=== PATIENT | female | born 1950 | race Caucasian/White ===

== ENCOUNTER 2017-04-12 17:30 | Emergency (ER) | payer OTHER ==
[~2017-04-12] VITALS: Ht 165.1 cm; Wt 64.3 kg
[2017-04-12 17:33] VITALS: TEMP 36.3; Ht 165.1 cm; Wt 64.3 kg
[2017-04-12] MEDS ORDERED: HYDROCODONE/ACETAMOPHEN 5/325MG TAB PO STA ×2 (17:47→18:35)
[2017-04-12] MEDS ORDERED: ONDANSETRON 4MG OD TAB PO ONE (18:00)
[2017-04-12] MEDS ORDERED: LISI10TA PO (18:08)
[2017-04-12] MEDS ORDERED: CHOL2000 PO (18:08)
[2017-04-12] MEDS ORDERED: LEVO75TA5 PO (18:08)
[2017-04-12] MEDS ORDERED: CYAN100020 PO (18:08)
--- NOTE | 2017-04-12 18:36 | DIAGNOSTIC IMAGING REPORT ---
LEFT WRIST MIN 3 VIEWS ROUTINE CLINICAL HISTORY: Trauma. Left wrist pain. COMPARISON STUDY: None. FINDINGS: The bones are osteopenic. Nondisplaced fracture at the base of the ulnar styloid. Soft tissue swelling within the left wrist. The carpal bones appear intact. A comminuted and impacted fracture of the distal left radius with intra-articular extension. This demonstrates up to 6 mm of dorsal displacement. IMPRESSION: Distal radius and ulnar styloid fractures as described above. Electronically signed by: Jonathan Chung M.D. 04/12/2017 6:35 PM Dictated Date/Time: 04/12/2017 6:34 PM
[2017-04-12] MEDS ORDERED: XYLOCAINE 1%/SOD BICARB 20 ML VIAL INFIL ONE (18:45)
[2017-04-12] MEDS ORDERED: NORCO 5/325MG HOME PACK PO ONE (19:30)
[2017-04-12] MEDS ORDERED: HYDR-5688 PO (19:31)
[2017-04-12 20:04] VITALS: BP 146/91; PULSE 73; O2SAT 97
--- NOTE | 2017-04-12 20:27 | DIAGNOSTIC IMAGING REPORT ---
LEFT WRIST 2 VIEW CLINICAL HISTORY: s/p reduction. Left wrist fracture. COMPARISON STUDY: Left wrist 04/12/2017. FINDINGS: Overlying splint material obscures fine bony detail. The patient is status post reduction of the left distal radius and ulnar styloid fractures. There is improved anatomic alignment with no significant displacement at this time. No dislocation. Mild soft tissue swelling. IMPRESSION: Near anatomic alignment status post reduction of the left distal radius and ulnar styloid fractures. Electronically signed by: Jonathan Chung M.D. 04/12/2017 8:26 PM Dictated Date/Time: 04/12/2017 8:25 PM
--- NOTE | 2017-04-12 23:02 | ORTHOPEDIC CONSULTATION ---
DATE OF CONSULTATION: 04/12/2017 HISTORY OF PRESENT ILLNESS: She is a 66-year-old female who fell on an outstretched left arm and had deformity and pain in her wrist. She was in [place], as they used to live here and her family is here a nod she is visiting her daughter and grandchildren. PAST MEDICAL HISTORY: Positive for hypertension. MEDICATIONS: Vitamin D, vitamin B12, levothyroxine and lisinopril. She is an otherwise healthy individual. SOCIAL HISTORY: She lives with her and they are from [facility]. REVIEW OF SYSTEMS: Noncontributory. No other injuries. No active health issues. PHYSICAL EXAMINATION: Demonstrates on her left wrist, she has some deformity, consistent with a Colles' fracture. There is some dorsal displacement of the radius with respect to the shaft with some slight radial deviation. Tenderness of the radius and the ulna. NEUROLOGICAL: Exam is intact. SKIN: Is intact. RADIOGRAPHS: Demonstrate Colles; fracture with ulnar styloid fracture. There is some dorsal ulnar comminution with a displaced fragment dorsally. The angulation is about 30 degrees, apex volar. ASSESSMENT: Acute left Colles' fracture. PLAN: Closed reduction under hematoma block. Her wrist was sterilely prepped with Betadine and a 20-gauge needle was used to inject 10 mL of 1% lidocaine into the hematoma via dorsal approach. She had excellent pain relief. We did a closed reduction by reproducing some of the extension deformity, placed in longitudinal traction and palmar flexion and ulnar deviation. She was placed into anterior-posterior molded plaster splints and then a fiberglass sugar tong splint was placed about the elbow. Kody wraps were applied. The mold was held until the plaster hardened. Post-reduction x-rays are pending at this time. I discussed with her that she could either be treated conservatively with splinting followed by casting versus volar locking plate, depending are on the x-rays and follow up x-rays with her orthopedist at home. She is going to follow up with her orthopedic surgeon at home in [place].
--- NOTE | 2017-04-13 00:22 | EMERGENCY ROOM VISIT NOTE ---
History Report prepared by Nain: Zheng Downing Under the Supervision of: Dr. Jasper Anderson M.D. First contact with patient: 17:40 Chief Complaint: WRIST PAIN Stated Complaint: L WRIST INJURY History of Present Illness The patient is a 66 year old female with a history of a right wrist hairline fracture who presents to the Emergency Room with complaints of a sudden left wrist injury that occurred around 25 minutes ago. The [place]. She states that she was outside enjoying herself, when she lost her balance and fell backwards. The patient states that she caught her fall with her left wrist, and has resulting left wrist pain, which she rates as a 5 out of 10 in severity. She adds that she hit the back of her head on the fall, but her left wrist took the brunt of the fall. She notes that she has left arm pain, in addition to starting to have some tingling and numbness in her fingers on her left hand. She says that her pain currently is worse than when she fell and fractured her left wrist in the past. The patient says that she has hypertension, and takes 10 mg Lisinopril. Pt denies LOC, headache, visual changes, neck pain, chest pain, breathing difficulties, nausea, vomiting, abdominal pain, back pain, weakness, open wounds, active bleeding, or other complaints. Source of History: patient Onset: 25 minutes ago Position: wrist (left) Symptom Intensity: 5/10 pain Timing: other (sudden) Associated Symptoms: + numbness (and tingling in fingers on left hand) Note: Associated symptoms: Left arm pain. Review of Systems See HPI for pertinent positives and negatives. A total of ten systems were reviewed and were otherwise negative. Past Medical & Surgical Medical Problems: (1) HTN (hypertension) (2) Right wrist fracture Family History Cancer Diabetes mellitus Heart disease Hypertension Social History Smoking Status: Never Smoker Smokeless Tobacco Use: No Alcohol Use: occasionally Marital Status: Housing Status: lives with family Occupation Status: retired Current/Historical Medications Scheduled Cholecalciferol (Vitamin D3), 1 CAP PO DAILY Cyanocobalamin (Vitamin B12), 1 TAB PO DAILY Levothyroxine Sodium (Levothyroxine Sodium), 75 MCG PO DAILY Lisinopril (Prinivil), 10 MG PO DAILY Scheduled PRN Hydrocodone/Acetaminophen 5MG/325MG (Beulah 5MG/325MG), 1-2 TABS PO Q6H PRN for Pain Allergies Coded Allergies: No Known Allergies (Unverified , 04/12/17) Physical Exam Vital Signs Date Time Temp Pulse Resp B/P (MAP) Pulse Ox O2 Delivery O2 Flow Rate FiO2 04/12/17 20:04 73 20 146/91 97 04/12/17 17:33 36.3 86 20 137/72 98 Room Air Physical Exam GENERAL: Awake, alert, mildly uncomfortable appearing, no acute distress HEAD: Normocephalic, atraumatic. No flores sign. No raccoon eyes. EYES: Normal conjunctiva. PERRL. EARS: External ears normal. Right TM normal. Left TM normal. NOSE: Atraumatic OROPHARYNX: Lips, tongue, and mucosa unremarkable. No erythema or exudate. NECK: Neck is supple, full range of motion. No tracheal deviation or JVD. No posterior midline tenderness. No step offs noted. RESPIRATORY: CTA bilaterally CARDIAC: Regular rate, normal rhythm. ABDOMEN: Inspection reveals no abnormalities. Soft, non distended. No tenderness to palpation. No hernias. BACK: No midline step offs or tenderness to palpation. Unremarkable. PELVIS: Stable to rock. SKIN: Normal. LYMPH: No adenopathy. MUSCULOSKELETAL: Deformity, tenderness, and swelling of left wrist. Lower extremities are atraumatic. NEURO: GCS 15. Normal sensorium. No sensory or motor deficits noted. Medical Decision & Procedures ER Provider Diagnostic Interpretation: X-ray: Per my interpretation, radiologist review. LEFT WRIST MIN 3 VIEWS ROUTINE CLINICAL HISTORY: Trauma. Left wrist pain. COMPARISON STUDY: None. FINDINGS: The bones are osteopenic. Nondisplaced fracture at the base of the ulnar styloid. Soft tissue swelling within the left wrist. The carpal bones appear intact. A comminuted and impacted fracture of the distal left radius with intra-articular extension. This demonstrates up to 6 mm of dorsal displacement. IMPRESSION: Distal radius and ulnar styloid fractures as described above. Electronically signed by: Jonathan Chung M.D. 04/12/2017 6:35 PM Dictated Date/Time: 04/12/2017 6:34 PM Medications Administered Medications (Trade) Dose Ordered Sig/Jesus Route Start Time Stop Time Status Last Admin Dose Admin Acetaminophen/ Hydrocodone Bitart (Beulah 5/325 Tab) 1 tab NOW STAT PO 04/12/17 17:47 04/12/17 17:50 DC 04/12/17 17:54 1 TAB Ondansetron HCl (Zofran Odt) 4 mg ONE ONCE PO 04/12/17 18:00 04/12/17 18:01 DC 04/12/17 17:55 4 MG Acetaminophen/ Hydrocodone Bitart (Beulah 5/325 Tab) 1 tab NOW STAT PO 04/12/17 18:35 04/12/17 18:36 DC 04/12/17 18:49 1 TAB Acetaminophen/ Hydrocodone Bitart (Beulah 5/325mg Home Pack) 1 homepack UD ONCE PO 04/12/17 19:30 04/12/17 19:31 DC 04/12/17 20:05 1 HOMEPACK ED Course 1740: The patient was evaluated in room D3B. A complete history and physical exam was performed. 1746: Ordered Beulah 5/325 Tab 1 tab PO. 1799: Ordered Zofran Odt 4 mg PO. 1828: I discussed the patient with Dr. Alvarez - [facility] - he will come in and reduce the patient's wrist. 1844: Ordered Buffered Lidocaine 1% Inj 20 ml INFIL. 1903: I reevaluated the patient, and Dr. Alvarez is treating her. 1929: Ordered Beulah 5/325mg Home Pack 1 homepack PO. 1954: I reevaluated the patient and she is feeling much better. She is splinted. She will follow up with orthopedics at home. The patient verbally expressed understanding and agreement of the treatment plan. The patient will be discharged. Medical Decision Triage Nursing notes reviewed and agree them. The patient's history was concerning for traumatic injury. Differential diagnosis: Etiologies such as fracture, dislocation, neurovascular compromise, compartment syndrome, soft tissue injury, as well as others were entertained. Physical examination: Consistent with an isolated wrist injury. ER treatment provided: Oral Beulah 2 Ice pack Arm sling Reduction and splinting by orthopedics On reassessment the patient felt better. Diagnostics interpreted by me: Imaging studies: Xrays as above. Consultation: A consultation was placed with the orthopedist, Dr. Alvarez. The case was discussed and diagnostics were reviewed. The patient was evaluated in the ER for further treatment. By the evaluation outlined above emergent etiologies such as open fracture, dislocation, neurovascular compromise, compartment syndrome, infections, as well as others were deemed relatively unlikely. The patient and were informed about the findings as listed above. All questions were answered and they were very pleased with the treatment. Return instructions were outlined and the patient was discharged in stable condition. Prescription management: Beulah Referral: The patient is visiting from [place]. She is planning on leaving tomorrow. She has an orthopedist at home. She will contact them first thing when she returns home. I gave my usual and customary discussion regarding this issue. Medication Reconcilliation Current Medication List: was personally reviewed by me Blood Pressure Screening Patient's blood pressure: Elevated blood pressure Blood pressure disposition: Elevated BP felt to be situational Consults Time Called: 1824 Consulting Physician: Dr. Alvarez [facility] Returned Call: 1828 I discussed the patient with Dr. Alvarez [facility] - he will come in and reduce the patient's wrist. Impression Primary Impression: Closed fracture of left wrist Scribe Attestation The scribe's documentation has been prepared under my direction and personally reviewed by me in its entirety. I confirm that the note above accurately reflects all work, treatment, procedures, and medical decision making performed by me. Departure Information Dispostion Home / Self-Care Prescriptions Hydrocodone/Acetaminophen 5MG/325MG (Beulah 5MG/325MG) Tab 1-2 TABS PO Q6H Y for Pain, #20 TAB Prov: Jasper Anderson MD 04/12/17 Referrals No Doctor, Assigned Forms HOME CARE DOCUMENTATION FORM, IMPORTANT VISIT INFORMATION, WORK / SCHOOL INSTRUCTIONS Patient Instructions My [facility] Additional Instructions ORTHOPEDIC INSTRUCTIONS: DO NOT drive, drink alcohol, operate machinery, or perform dangerous activities today. You were given medications in the ER that can affect your ability to safely function or operate a vehicle. Hydrocodone/acetaminophen 5/325mg: Take 1-2 pills every 6 hours as needed for pain. Avoid additional Acetaminophen/Tylenol, alcohol, operating machinery or dangerous equipment, working on ladders or roofs, DRIVING, or situations where being under the influence may be dangerous. It is recommended to use a stool softener such as Colace, 100mg twice daily while taking this medication to avoid constipation. Ibuprofen(Motrin, Advil) may be used for fever or pain. Use 600mg every six hours as needed. Take with food. Avoid using more than 2400mg in a 24 hour period. Do not use 2400mg per day for more than three consecutive days without physician direction. Prolonged inappropriate use can lead to stomach upset or ulcers. Ice compresses for 20 minutes at a time four times daily for 2-3 days. Use the sling as instructed. Remove your arm from the sling 4-6 times a day and move all the joints around to keep them loose. Rest and elevate your injury. Do not get the splint wet. If your splint feels excessively tight, you have worsening pain, develop numbness or tingling, or your digits appear blue, loosen the maciej wrap. Then reapply the maciej wrap gently without removing the splint. If your symptoms are not quickly relieved return to the ER for re- evaluation. Return to the ER immediately for any numbness, tingling, severe pain, extreme swelling in the extremity or as needed. Follow all instructions given to by Dr. Alvarez. Call your orthopedist tomorrow to arrange follow-up as soon as possible for when you return to [place]. Problem Qualifiers Primary Impression: Closed fracture of left wrist Encounter type: initial encounter Qualified Codes: S62.102A - Fracture of unspecified carpal bone, left wrist, initial encounter for closed fracture
== END 2017-04-12 20:07 | disposition home or self-care (01) ==
LOC: C.EDB 17:32 → C.EDD 20:07
DX: S52.512A Displaced fracture of left radial styloid process, initial encounter for closed fracture (principal); W19.XXXA Unspecified fall, initial encounter; Y92.89 Other specified places as the place of occurrence of the external cause; I10 Essential (primary) hypertension; Z80.9 Family history of malignant neoplasm, unspecified; Z83.3 Family history of diabetes mellitus; Z82.49 Family history of ischemic heart disease and other diseases of the circulatory system; Z79.899 Other long term (current) drug therapy